=== PATIENT | male | born 1975 | race Caucasian/White ===

== ENCOUNTER 2023-06-06 17:54 | Emergency (ER) | payer BC, SELFPAY ==
[2023-06-06 18:09] VITALS: BP 121/81
[2023-06-06 18:32] LABS: % Basophils 1.3 % (0-2); % Eosinophils 3.4 % (0-6); % Lymphocytes 40.8 % (20.5-51.1); % Monocytes 11.1 % (1.7-9.3); % Neutrophils 43.4 % (42.2-75.2); Absolute Basophils 0.1 10^3/uL (0-0.2); Absolute Eosinophils 0.2 10^3/uL (0-0.7); Absolute Lymphocytes 2.3 10^3/uL (1.2-3.4); Absolute Monocytes 0.6 10^3/uL (0.1-0.6); Absolute Neutrophils 2.4 10^3/uL (1.4-6.5); Hematocrit 42.3 % (39.0-52.0); Hemoglobin 14.4 g/dL (13.0-18.0); Mean Corpuscular Hgb 29.4 pg (27.0-31.0); Mean Corpuscular Volume 86.3 fL (80.0-94.0); Mean Platelet Volume 9.2 fL (7.4-10.4); Nucleated Red Blood Cells % 0 % (-); Platelet Count 205 10^3/uL (130-400); Red Cell Dist. Width 12.8 % (11.5-14.5); White Blood Cell Count 5.5 10^3/uL (4.8-10.8)
[2023-06-06 18:55] LABS: ALT (SGPT) 21 U/L (0-50); AST (SGOT) 29 U/L (17-59); Albumin 4.4 g/dl (3.5-5.0); Alkaline Phosphatase 52 U/L (38-126); Blood Urea Nitrogen 20 mg/dl (9-20); Calcium 9.3 mg/dl (8.4-10.2); Carbon Dioxide 32 mmol/L (22-30); Chloride 103 mmol/L (98-107); Glucose 81 mg/dl (70-99); Potassium 4.1 mmol/L (3.5-5.1); Sodium 140 mmol/L (135-145); Total Bilirubin 0.5 mg/dl (0.2-1.3); eGFR > 60.00
[2023-06-06 22:21] VITALS: BP 120/88
[2023-06-06 23:04] LABS: COVID-19 Antigen Negative (Negative)
[2023-06-06] MEDS: VIBRAMYCIN 100 MG PO (23:42)
[2023-06-06 23:43] VITALS: BP 120/81
[2023-06-07 00:22] LABS: Monotest Positive (Negative)
--- NOTE | 2023-06-07 02:54 | ED.GENMED ---
History of Present Illness
<Freida Snow PA-C - Last Filed: 06/07/23 03:05>
General
Chief Complaint: Ear Problem
Source: patient
Exam Limitations: none
Time Seen by Provider: 06/06/23 21:26
Nursing documentation reviewed up to this point in time: agreed with
Travel History
Have you had any contact with someone who has COVID-19?: No
Do you have any symptoms of coronavirus? Fever > 100 degrees, chills, cough, shortness of breath, sore throat, loss of taste or smell, muscle aches, or headache?: No
History of Present Illness
History of Present Illness:
47 /o M no chronic history
had lyme remotely
here with tinnitus left ear x 2 weeks
no headahe/vision changes/neck pain/dizziness.
no barotrauma or RF for perf tm
pt went to PCP and was told he probabyly had fluid behind left ear so he was pu ton flonase and zyrtec
pt says that in the past 2 days eh nstarted hving some pain in his arm/shoulder//hand and elbow and feels slimiar to when he had lyme tdisease
he has no weakness, numbness but just some join pain, no swelling
no fever, headache, no pulsatile hearing loss or ringing in ear
no cervical maniopulation
has ENT appt at end of the month.
Past History
<Freida Snow PA-C - Last Filed: 06/07/23 03:05>
Past History
ED Past Medical History: None
ED Past Surgical History: None
Social History
Tobacco: Non-smoker
Alcohol: Occasional
Drug: None
Personal:
Living: with family
Review of Systems
<Freida Snow PA-C - Last Filed: 06/07/23 03:05>
Review of Systems
Allergies reviewed?: Yes
All Other Systems: Not applicable
Phy Exam
<Freida Snow PA-C - Last Filed: 06/07/23 03:05>
Physical Exam
Physical Exam:
GENERAL: Alert , in no apparent distress, well appearing
HEAD: NCAT
EYE: pupils equal and reactive, no nystagmus, no photophobia
NECK: Supple,full rom, nontender
ENT: o/p clr, mmm.
TMs, no significant fluid; left cerumen in canal but not fully impacted
can her finger rubs b/l
no sinus tenderness
no mastoid tendenresss
no forehead tendenress;
CARDIAC: Regular rate and rhythm . no edema
LUNGS: Clear breath sounds bilaterally, no acute respiratory distress, no wheezes/rales/rhonchi
ABDOMEN: Soft, without focal tenderness, no r/g, no cvat
NEUROLOGICAL: Alert and orientedx 4, cn intact, no facial asymmetry, 5/5 strength in UE/LE, sensation intact, romberg neg, ambulates without assistance, neg pronator drift
SKIN: Warm and dry, skin intact.
MUSCULOSKELETAL: No edema, well perfused.
PSYCH: Normal and appropriate interaction.
Course
<Freida Snow PA-C - Last Filed: 06/07/23 03:05>
Orders/Labs/Results
Orders:
Orders
06/06/23 18:26
Complete Blood Count/With Diff Urgent
Comprehensive Metabolic Panel Urgent
Lyme Progressive Urgent
Monotest Urgent
Comment: ADD ON
06/06/23 22:20
Add On- LAB Urgent
Tests Added?: lyme progressive, mono
06/06/23 22:21
CT Head W/o Iv Contrast Urgent
Comment:
Reason For Exam: tinnitus left ear, right sided UE pain
06/06/23 22:41
COVID-19 Antigen Urgent
Source: Nasal Swab
06/06/23 23:32
Doxycycline [Vibramycin] 100 mg PO NOW STA
Abnormal Lab Results
06/06/23
18:26
Monocytes % 11.1 H %
(1.7-9.3)
Carbon Dioxide 32 H mmol/L
(22-30)
Monoscreen Positive A
(Negative)
06/06/23 18:26
06/06/23 18:26
Vital Signs
Initial and Last Documented VS:
Initial Vital Signs
Temp Pulse Resp BP Pulse Ox
98.1 F 71 16 121/81 99
06/06/23 18:09 06/06/23 18:09 06/06/23 18:09 06/06/23 18:09 06/06/23 18:09
Last Documented Vital Signs
Temp Pulse Resp BP Pulse Ox
98.6 F 71 16 120/81 96
06/06/23 22:21 06/06/23 23:43 06/06/23 18:09 06/06/23 23:43 06/06/23 23:43
[place];Josep Carlson PA-C - Last Filed: 06/07/23 13:25>
Orders/Labs/Results
Orders:
Orders
06/06/23 18:26
Complete Blood Count/With Diff Urgent
Comprehensive Metabolic Panel Urgent
Lyme Progressive Urgent
Monotest Urgent
Comment: ADD ON
06/06/23 22:20
Add On- LAB Urgent
Tests Added?: lyme progressive, mono
06/06/23 22:21
CT Head W/o Iv Contrast Urgent
Comment:
Reason For Exam: tinnitus left ear, right sided UE pain
06/06/23 22:41
COVID-19 Antigen Urgent
Source: Nasal Swab
06/06/23 23:32
Doxycycline [Vibramycin] 100 mg PO NOW STA
Abnormal Lab Results
06/06/23
18:26
Monocytes % 11.1 H %
(1.7-9.3)
Carbon Dioxide 32 H mmol/L
(22-30)
Monoscreen Positive A
(Negative)
06/06/23 18:26
06/06/23 18:26
Vital Signs
Initial and Last Documented VS:
Initial Vital Signs
Temp Pulse Resp BP Pulse Ox
98.1 F 71 16 121/81 99
06/06/23 18:09 06/06/23 18:09 06/06/23 18:09 06/06/23 18:09 06/06/23 18:09
Last Documented Vital Signs
Temp Pulse Resp BP Pulse Ox
98.6 F 71 16 120/81 96
06/06/23 22:21 06/06/23 23:43 06/06/23 18:09 06/06/23 23:43 06/06/23 23:43
<Freida Snow PA-C - Last Filed: 06/07/23 03:05>
MDM/Problems Addressed
Differential Diagnosis Includes:
serous otitis media, labyrinthritis, meniere's disease, lyme diseaesM SINUSITIS
MDM/Problems Addressed:
47 y/o M
painless L ear tinnitus x 2 weeks
able to sleep
no headache
no pulsatile component
started having what he is calling joint pain in shoulder, elbow hand on right side which he recalls feels exactly like when he had lyme disease
vitls stable
well appearing
preserved hearing
neuro intct
labs initially elevated monos--> added on mono spot which wa not resulted prior to discharge
lyme titer pending
sinusi inflammation on head ct otherwies unremarkable
d/w patinet, will cover sinus with abx since symptoms >2 weeks
chose doxy because of possibility of lyme
pt's monoscreen pos
unclear if he had mono in the past
he will need to be called later today with the results
no treatment change required.
b ut consider holding abx?
<Freida Snow PA-C - Last Filed: 06/07/23 03:05>
*Critical Care Note
Total Time (30-74mins, 75-104mins- exclusive of procedures): Not Applicable
<Josep Carlson PA-C - Last Filed: 06/07/23 13:25>
Update Note
Update Note:
June 06 1:25 PM: Patient's monotest is positive. This was not back at the time of the visit. Spoke with patient and relayed this information advised follow-up with ENT as planned.
ED Attending Note
<Freida Snow PA-C - Last Filed: 06/07/23 03:05>
-
Portions of this chart may have been created with voice recognition software.� Occasional wrong word or��sound alike� substitutions may have occurred due to the inherent limitations of voice recognition software.
Discharge Plan
Departure
Patient Disposition: Home (Routine Discharge)
Date of Disposition: 06/06/23
Time of Disposition: 23:34
Patient with high blood pressure during this ER visit?: No
Condition: Fair
Covid-19: Negative COVID-19
Discharge Problem:
Tinnitus, Sinusitis
Instructions: Sinusitis, Adult (DC)
Prescriptions:
New
doxycycline monohydrate 100 mg tablet
100 mg PO BID Qty: 14 0RF
Referrals:
Lizzy Wright MD [Family Provider] - Follow up in 2-3 days
Activity Restrictions/Additional Instructions:
WE ARE NOT SURE THE CAUSE OF YOUR SYMPTMOS
BUT YOU COULD HAVE SINUS INFECTION/FLUID IN YOUR CANAL CAUSING THESE SYMPTOMS
CONTINUE THE FLONASE AND THE ZYRTEC
TAKE DOXYCYCLINE 100 MG TWICE A DAY FOR 7 DAYS
IF YOU TEST POSITIVE FOR LYME DISEAE YOU WILL NEED ANOTHER 7-14 DAYS OF ANTIBIOTICS. WE WILL CALL YOU IF POSITIVE
RETURN FOR: WEAKNESS IN ARMS OR LEGS, SEVERE HEADACHE, DIZZINESS, NECK PAIN, VISION CHANGES, OR ANY CONCERNS.
Interventions
Interventions:
*Risk Screen - Suicide Last Done: 06/06/23 23:46
*General Assessment Last Done: 06/06/23 23:46
*Neglect/Abuse Screening Last Done: 06/06/23 23:46
ED- Fall Risk Assessment Last Done: 06/06/23 23:46
*ED COVID-19 Vaccine History Last Done: 06/06/23 18:09
*Nursing Disposition Last Done: 06/06/23 23:46
Discharge Date and Time
Discharge Date/Time: 06/06/23 23:47
Print Language: SWEDISH
[2023-06-10 14:15] LABS: Lyme Antibody Screen, EIA Presump. Positive (Negative)
[2023-06-13 17:15] LABS: Lyme Ab Western Blot IgG Positive (Negative); Lyme Ab Western Blot IgM Negative (Negative)
== END 2023-06-06 23:47 | disposition home or self-care (01) ==
LOC: EMR 17:54
PROVIDERS: Physician Assistant; EMERGENCY PHYSICIAN Emergency Medicine; FAMILY PHYSICIAN Internal Medicine
DX: H93.12 Tinnitus, left ear (principal); J32.9 Chronic sinusitis, unspecified; B27.90 Infectious mononucleosis, unspecified without complication; Z11.52 Encounter for screening for COVID-19
CPT/HCPCS: 99284; 70450; 80053; 85025; 86308; 86617; 86618; 87811